=== PATIENT | male | born 1945 | race Two or more races ===

== ENCOUNTER 2022-08-21 19:28 | Inpatient (IN) | payer BC, OTHER ==
[~2022-08-21] VITALS: Ht 165.1 cm; Wt 106.7 kg
[2022-08-21] MEDS ORDERED: SODIUM CHLORIDE 0.9% 500 ML IVB ONE (20:00)
[2022-08-21 20:55] LABS: Basophils # (auto) 0.1 10 ^3/uL (0-0.2); Basophils % (auto) 1.1 % (0.0-2.0); Eosinophils # (auto) 0.6 10 ^3/uL (0-0.8); Eosinophils % (auto) 7.2 % (0.0-7.0); Hematocrit 42.3 % (41.0-53.0); Hemoglobin 14.4 g/dL (13.5-17.5); Lymphocytes # (auto) 0.5 10 ^3/uL (0.4-5.4); Lymphocytes % (auto) 6.4 % (10.0-50.0); Mean Corpuscular Hemoglobin 31.5 pg (28.0-32.0); Mean Corpuscular Hgb Conc. 34.1 g/dL (32.0-36.0); Mean Corpuscular Volume 92.5 fL (80.0-100.0); Monocytes # (auto) 0.5 10 ^3/uL (0-1.3); Monocytes % (auto) 6.8 % (0.0-12.0); Neutrophils # (auto) 6.4 10 ^3/uL (1.6-8.6); Neutrophils % (auto) 78.5 % (37.0-80.0); Nucleated Red Blood Cells % 0.1 %; Red Blood Cells 4.57 10^6/uL (4.5-5.90); Red Cell Distribution Width 14.9 % (11.8-14.3); White Blood Cell 8.1 10^3/uL (4.4-10.8)
[2022-08-21 21:11] LABS: INR 1.54 (0.9-1.15); Partial Thromboplastin Time 31.9 sec (24.6-33.4)
[2022-08-21 21:34] LABS: Lactic Acid w/Reflex 2.7 mmol/L (0.4-2.0)
[2022-08-21 21:35] LABS: Albumin 2.7 g/dL (3.4-5.0); Amylase 21 U/L (25-115); Anion Gap 12 (5-15); BUN/Creatinine Ratio 12.9; Blood Urea Nitrogen 16 mg/dL (7-18); Calcium 9.1 mg/dL (8.5-10.1); Carbon Dioxide 19 mmol/L (21-32); Chloride 103 mmol/L (98-107); GFR African American 73 mL/min; GFR Non-African American 60 mL/min; Glucose 132 mg/dL (74-106); Lipase 49 U/L (73-393); Magnesium 1.8 mg/dL (1.6-2.6); Potassium 4.6 mmol/L (3.5-5.1); Sodium 134 mmol/L (136-145)
[2022-08-21 21:50] LABS: Alkaline Phosphatase 435 U/L (45-117); Bilirubin, Total 10.8 mg/dL (0.2-1.0); Total Protein 6.4 g/dL (6.4-8.2)
[2022-08-21 22:23] LABS: Alanine Aminotransferase 1520 U/L (16-61); Aspartate Aminotransferase 1664 U/L (15-37)
[2022-08-22] MEDS ORDERED: ONDANSETRON HCL 4 MG/2 ML VIAL IV PRN (02:45)
[2022-08-22] MEDS: PANTOPRAZOLE 40 MG TAB PO SCH (15:33)
[2022-08-22 17:35] LABS: Urine Bacteria FEW /hpf (None Seen); Urine Blood Negative /uL (Negative); Urine Hyaline Cast MANY /lpf (0 - 2); Urine Mucus FEW (None Seen); Urine Specific Gravity 1.031 (1.001-1.035); Urine WBC 7 /hpf (0 - 3)
[2022-08-22] MEDS: cefTRIAXone 1GM/50ML D5W 50 ML IV SCH (21:06)
[2022-08-22 22:00] VITALS: BP 134/76
[2022-08-22 23:05] VITALS: BP 134/76
[2022-08-23 05:00] VITALS: BP 122/73
[2022-08-23 05:29] LABS: Hematocrit 40.2 % (41.0-53.0); Hemoglobin 13.8 g/dL (13.5-17.5); Mean Corpuscular Hemoglobin 31.9 pg (28.0-32.0); Mean Corpuscular Hgb Conc. 34.3 g/dL (32.0-36.0); Mean Corpuscular Volume 92.9 fL (80.0-100.0); Red Blood Cells 4.33 10^6/uL (4.5-5.90); Red Cell Distribution Width 15.1 % (11.8-14.3); White Blood Cell 8.3 10^3/uL (4.4-10.8)
[2022-08-23 05:56] LABS: Albumin 2.4 g/dL (3.4-5.0); Calcium 8.7 mg/dL (8.5-10.1); Potassium 4.7 mmol/L (3.5-5.1)
[2022-08-23 06:05] LABS: Bilirubin, Total 14.7 mg/dL (0.2-1.0); Total Protein 6.1 g/dL (6.4-8.2)
[2022-08-23 06:31] LABS: Basophils % (manual) 0 (0.0-2.0); Blast Cells 0; Metamyelocytes % 0; Myelocytes % 0; Promyelocytes % 0; Reactive Lymphocytes 0
[2022-08-23 07:34] LABS: Hepatitis A Ab IgM Negative; Hepatitis B Core IgM Negative
[2022-08-23 07:35] LABS: Hepatitis C Antibody Negative (Negative)
[2022-08-23 09:00] VITALS: BP 134/73
[2022-08-23] MEDS: cefTRIAXone 1GM/50ML D5W 50 ML IV SCH (10:52)
[2022-08-23] MEDS: PANTOPRAZOLE 40 MG TAB PO SCH (10:52)
[2022-08-23] MEDS ORDERED: IBUPROFEN 100MG/5ML ORAL SUSP 100 MG/5 ML UD PO PRN (12:45)
[2022-08-23 13:00] VITALS: BP 121/71
[2022-08-23 13:09] LABS: Band Neutrophils % (manual) 4; Eosinophils % (manual) 10 (0-7); Lymphocytes % (manual) 6 (10.0-50.0); Monocytes % (manual) 12 (0-12)
[2022-08-23] MEDS ORDERED: ALUM & MAG HYDROX-SIMETH LIQ(MAALOX) 30 ML PO ONE (13:45)
[2022-08-23] MEDS ORDERED: ACETAMINOPHEN 325 MG TAB PO ONE (14:30)
[2022-08-23] MEDS ORDERED: KETO0.5S OP (16:25)
[2022-08-23] MEDS ORDERED: GLUC1CAP11 PO (16:25)
[2022-08-23] MEDS ORDERED: FINA5TAB4 PO (16:25)
[2022-08-23] MEDS ORDERED: ATOR40TA52 PO (16:25)
[2022-08-23] MEDS ORDERED: POLY33504 PO (16:25)
[2022-08-23] MEDS ORDERED: OMEP-434 PO (16:25)
[2022-08-23] MEDS ORDERED: MILK1000 PO (16:25)
[2022-08-23] MEDS ORDERED: ASPI-543 PO (16:25)
[2022-08-23] MEDS ORDERED: PRED1SUS4 OP (16:25)
[2022-08-23] MEDS ORDERED: ASCO-22 PO (16:25)
[2022-08-23] MEDS ORDERED: [UNRECOGNIZED DRUG - CODE] PO (16:25)
[2022-08-23] MEDS ORDERED: TAMS0.4C36 PO (16:25)
[2022-08-23 17:00] VITALS: BP 129/80
[2022-08-23] MEDS: SOD CHL 0.45% 1,000 ML IV SCH (18:44)
[2022-08-23] MEDS ORDERED: DEXT60TA4 PO (18:53)
[2022-08-23] MEDS ORDERED: LORA-622 PO (18:53)
[2022-08-23] MEDS ORDERED: MULT-931 PO (18:53)
[2022-08-23] MEDS ORDERED: AMOX250S69 PO (18:53)
[2022-08-23 22:00] VITALS: BP 138/55
[2022-08-24] MEDS: MORPHINE SULFATE INJ 2 MG/ml SYRG IV PRN ×4 (01:31→21:08)
[2022-08-24] MEDS: SOD CHL 0.45% 1,000 ML IV SCH ×3 (03:19→18:12)
[2022-08-24 05:00] VITALS: BP 114/61
[2022-08-24] MEDS: cefTRIAXone 1GM/50ML D5W 50 ML IV SCH (08:40)
[2022-08-24] MEDS: PANTOPRAZOLE 40 MG TAB PO SCH ×2 (08:40→21:09)
[2022-08-24 09:00] VITALS: BP 103/63
[2022-08-24 13:00] VITALS: BP 130/72
[2022-08-24 15:50] LABS: Albumin 2.2 g/dL (3.4-5.0); BUN/Creatinine Ratio 11.5; Calcium 8.5 mg/dL (8.5-10.1); Potassium 4.8 mmol/L (3.5-5.1)
[2022-08-24 15:59] LABS: Bilirubin, Total 19.7 mg/dL (0.2-1.0); Total Protein 6.1 g/dL (6.4-8.2)
[2022-08-24] MEDS: ENOXAPARIN SOD 40 MG/0.4 ML SYRINGE SC SCH (18:11)
[2022-08-24] MEDS: URSODIOL 300 MG CAP PO SCH (21:08)
[2022-08-24 22:00] VITALS: BP 120/67
[2022-08-25] MEDS: MORPHINE SULFATE INJ 2 MG/ml SYRG IV PRN ×2 (04:35→10:30)
[2022-08-25 05:00] VITALS: BP 120/65
[2022-08-25 05:02] LABS: Basophils # (auto) 0.1 10 ^3/uL (0-0.2); Basophils % (auto) 0.6 % (0.0-2.0); Eosinophils # (auto) 1.2 10 ^3/uL (0-0.8); Eosinophils % (auto) 11.6 % (0.0-7.0); Hematocrit 42.5 % (41.0-53.0); Hemoglobin 14.5 g/dL (13.5-17.5); Lymphocytes # (auto) 0.7 10 ^3/uL (0.4-5.4); Lymphocytes % (auto) 7.1 % (10.0-50.0); Mean Corpuscular Hemoglobin 31.4 pg (28.0-32.0); Mean Corpuscular Hgb Conc. 34.1 g/dL (32.0-36.0); Mean Corpuscular Volume 92.1 fL (80.0-100.0); Monocytes # (auto) 0.8 10 ^3/uL (0-1.3); Monocytes % (auto) 8.3 % (0.0-12.0); Neutrophils # (auto) 7.3 10 ^3/uL (1.6-8.6); Neutrophils % (auto) 72.4 % (37.0-80.0); Nucleated Red Blood Cells % 0.1 %; Red Blood Cells 4.61 10^6/uL (4.5-5.90); Red Cell Distribution Width 15.7 % (11.8-14.3); White Blood Cell 10.1 10^3/uL (4.4-10.8)
[2022-08-25 05:38] LABS: Albumin 2.2 g/dL (3.4-5.0); BUN/Creatinine Ratio 13.7; Bilirubin, Total 20.8 mg/dL (0.2-1.0); Calcium 8.3 mg/dL (8.5-10.1); Potassium 4.7 mmol/L (3.5-5.1); Total Protein 5.8 g/dL (6.4-8.2)
[2022-08-25 08:00] VITALS: BP 112/65
[2022-08-25] MEDS: SOD CHL 0.45% 1,000 ML IV SCH (08:30)
[2022-08-25] MEDS: cefTRIAXone 1GM/50ML D5W 50 ML IV SCH (08:59)
[2022-08-25] MEDS: ENOXAPARIN SOD 40 MG/0.4 ML SYRINGE SC SCH (09:00)
[2022-08-25] MEDS: PANTOPRAZOLE 40 MG TAB PO SCH (09:00)
[2022-08-25] MEDS: URSODIOL 300 MG CAP PO SCH (09:00)
[2022-08-25] MEDS ORDERED: SODIUM CHLORIDE 0.9% 1,000 ML IV SCH (09:30)
[2022-08-25] MEDS ORDERED: GADOTERATE MEG 10 MMOL/20ml INJ (0.5MMOL/ml) IV ONE (09:47)
[2022-08-25] MEDS ORDERED: DOPamine 1600MCG/ML D5W 250 ML IV SCH (11:15)
[2022-08-25 11:36] LABS: Magnesium 2.4 mg/dL (1.6-2.6); Phosphorus 3.3 mg/dL (2.5-4.90)
[2022-08-25] MEDS ORDERED: SODIUM BICARBONATE 50ML VIAL 50 ML in SOD CHL 0.45% 1,000 ML IV SCH (11:45)
[2022-08-25 12:00] VITALS: BP 122/67
[2022-08-25] MEDS ORDERED: CEFEPIME IV SCH (13:30)
[2022-08-25] MEDS ORDERED: SODIUM CHL 0.9% IV SCH (13:30)
[2022-08-25] MEDS ORDERED: OCTREOTIDE ACETATE 100 MCG/ML VL SUBCUT SCH (14:00)
[2022-08-25] MEDS ORDERED: CEFEPIME 1GM/ 50ML 50 ML IV SCH (14:00)
[2022-08-25] MEDS ORDERED: CEFEPIME 2 GM in SODIUM CHL 0.9% 50 ML IV SCH (14:00)
[2022-08-26] MEDS ORDERED: ENOXAPARIN SOD 30 MG/0.3 ML SYRINGE SC SCH (10:00)
== END 2022-08-25 13:00 | disposition left against medical advice (07) | DRG 432 ==
LOC: EDBD 19:28 → ER 19:33 → OVERFLOW 08-22 02:35 → WEST WING 08-22 22:05
PROVIDERS: ADMIT Nurse Practitioner; ATTEND Internal Medicine
DX: K74.60 Unspecified cirrhosis of liver (principal); K76.7 Hepatorenal syndrome; N17.0 Acute kidney failure with tubular necrosis; B17.9 Acute viral hepatitis, unspecified; R18.8 Other ascites; E87.1 Hypo-osmolality and hyponatremia; E87.20 Acidosis, unspecified; K80.20 Calculus of gallbladder without cholecystitis without obstruction; K44.9 Diaphragmatic hernia without obstruction or gangrene; R79.89 Other specified abnormal findings of blood chemistry; E88.09 Other disorders of plasma-protein metabolism, not elsewhere classified; R59.1 Generalized enlarged lymph nodes; D69.6 Thrombocytopenia, unspecified; Z53.29 Procedure and treatment not carried out because of patient's decision for other reasons; N40.0 Benign prostatic hyperplasia without lower urinary tract symptoms; Z87.891 Personal history of nicotine dependence
CPT/HCPCS: 36415; 74176; 74181; 74183; 76705; 76775; 80053; 80074; 81001; 82105; 82140; 82150; 82306; 83605; 83615; 83690; 83735; 83970; 84100; 85007; 85025; 85027; 85610; 85730; 86301; 87040; 87426; 93005; G0378; J0696; J2405